=== PATIENT | male | born 1995 | race Caucasian/White ===

== ENCOUNTER 2017-02-10 17:11 | Emergency (ER) | payer BC ==
[2017-02-10 17:33] VITALS: TEMP 98
--- NOTE | 2017-02-10 17:38 | ED.PDOC ---
History of Present Illness - General Chief Complaint: Skin/Abrasion/Tear Stated Complaint: abscess Time Seen by Provider: 02/10/17 17:29 Source: patient, RN notes reviewed, Vital Signs reviewed Exam Limitations: no limitations - History of Present Illness Initial Comments: Patient comes in with c/o of a boil on his R chest. Reports it has been present for ~1 week. Worsening. Started using hot compresses yesterday. Timing/Duration: week Severity: moderate Location: torso - R chest Improving Factors: other - hot compresses Worsening Factors: nothing Associated Symptoms: denies symptoms Allergies/Adverse Reactions: Allergies NO KNOWN ALLERGY Allergy (Verified 02/10/17 17:33) Home Medications: Ambulatory Orders Sulfa/Trimeth 800/160 (Ds) Tab [Bactrim DS Tab] 1 ea PO BID #14 tab 02/10/17 Review of Systems - Review of Systems Constitutional: States: no symptoms reported Respiratory: States: no symptoms reported Cardiology: States: no symptoms reported Musculoskeletal: States: no symptoms reported Skin: States: see HPI Neurological: States: no symptoms reported All other Systems: No Change from Baseline Past Medical History (General) - Patient Medical History Hx Asthma: No Surgical History: no surgical history - Vaccination History Hx Tetanus, Diphtheria Vaccination: Yes Hx Influenza Vaccination: No Hx Pneumococcal Vaccination: No - Social History Hx Tobacco Use: Yes Hx Alcohol Use: No Hx Substance Use: No Hx Substance Use Treatment: No Hx Depression: No - Activities of Daily Living Hospice Agency (if applicable):: None - Female History Patient is a Female of Child Bearing Age (10 -59 yrs old): No Patient : No Family Medical History - Family History Mother Family History: Unknown Physical Exam - Physical Exam General Appearance: Alert, Comfortable, No apparent distress, Well Developed, Well Groomed, Well Hydrated, Well Nourished Cardiovascular/Chest: regular rate, rhythm, no gallop, no JVD, no murmur Respiratory: lungs clear, normal breath sounds, no respiratory distress, no accessory muscle use Neurologic: alert, normal mood/affect, oriented x 3 Skin Exam: warm/dry, normal color Skin Problem Location: torso - L chest @ superior aspect of areola. Skin Character: abscess, erythema, tenderness, thickening, warm, other - Minimal fluctuance Comments: Vital Signs 02/10/17 17:28 Temperature 98.0 F Pulse Rate [ 78 pulse ox] Respiratory 20 Rate Blood Pressure 136/87 [Left Arm] O2 Sat by Pulse 98 Oximetry Departure - Departure Clinical Impression: Abscess Time of Disposition: 17:39 Disposition: Discharge to Home or Self Care Condition: Good Departure Forms: ED Discharge - Pt. Copy, Patient Portal Self Enrollment Instructions: DI for Skin Abscess Diet: resume usual diet Activity: increase activity as tolerated Prescriptions: Sulfa/Trimeth 800/160 (Ds) Tab [Bactrim DS Tab] 1 ea PO BID #14 tab Home Medications: Ambulatory Orders Sulfa/Trimeth 800/160 (Ds) Tab [Bactrim DS Tab] 1 ea PO BID #14 tab 02/10/17 Additional Instructions: Hot compresses to R chest 3-5X/day
[2017-02-10 18:01] VITALS: BP 128/80; O2SAT 97
== END 2017-02-10 18:01 | disposition home or self-care (01) ==
LOC: ER 17:11
DX: L02.213 Cutaneous abscess of chest wall (principal); Z87.891 Personal history of nicotine dependence